=== PATIENT | female | born 2000 | race Caucasian/White ===

== ENCOUNTER 2024-10-14 20:11 | Emergency (ER) | payer SELFPAY ==
[2024-10-14 20:25] VITALS: BP 119/59; PULSE 76; RESP 16; O2SAT 100; BMI 29.3
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
[2024-10-14] MEDS: Ibuprofen 600 MG TABLET PO (21:19)
[2024-10-14] MEDS: Cyclobenzaprine HCl 10 MG TABLET PO (21:19)
[2024-10-14 21:52] LABS: UPreg QC Valid YES; Urine Pregnancy NEGATIVE (NEGATIVE)
[2024-10-14 21:59] VITALS: BP 130/68; PULSE 76; RESP 16; TEMP 36.6; O2SAT 100
== END 2024-10-14 22:01 | disposition home or self-care (01) ==
PROVIDERS: Emergency Provider Emergency Medicine
DX: T14.8XXA Other injury of unspecified body region, initial encounter (principal); V43.52XA Car driver injured in collision with other type car in traffic accident, initial encounter; M54.50 Low back pain, unspecified; Y93.89 Activity, other specified; Y92.414 Local residential or business street as the place of occurrence of the external cause; Y99.9 Unspecified external cause status
CPT/HCPCS: 81025; 99283; 99284